=== PATIENT | female | born 1995 | race Two or more races ===

== ENCOUNTER 2017-04-05 14:25 | Emergency (ER) | payer MEDICAID ==
[~2017-04-05] VITALS: Ht 157.5 cm; Wt 67.1 kg
[2017-04-05] MEDS ORDERED: IBUPROFEN 600 MG TAB PO ONE ×2 (14:35→14:45)
[2017-04-05 14:43] VITALS: BP 143/89
[2017-04-05] MEDS ORDERED: cefTRIAXone SOD 1,000 MG VL IM ONE (16:45)
== END 2017-04-05 17:19 | disposition home or self-care (01) ==
LOC: ER 14:34
DX: N39.0 Urinary tract infection, site not specified (principal); R05 Cough
CPT/HCPCS: 71020; 81002; 96372; 99284; J0696